=== PATIENT | female | born 1955 | race Two or more races ===

== ENCOUNTER 2016-11-24 19:18 | Emergency (ER) | payer SELFPAY ==
[~2016-11-24] VITALS: Ht 157.5 cm; Wt 100.0 kg
[2016-11-24] MEDS ORDERED: KETOROLAC 30MG/ML VIAL IV STA (21:49)
[2016-11-24] MEDS ORDERED: SODIUM CHLORIDE 0.9% 500 ML IV ONE (21:49)
[2016-11-24] MEDS ORDERED: ONDANSETRON HCL 4MG/2ML VIAL IV STA (21:49)
[2016-11-24] MEDS ORDERED: MORPHINE SULFATE 4 MG/ML CPJ (NOT FOR IM USE) IV STA (21:49)
[2016-11-25] MEDS ORDERED: MORPHINE SULFATE 4 MG/ML CPJ (NOT FOR IM USE) IV ONE (00:15)
[2016-11-25] MEDS ORDERED: ONDANSETRON HCL 4MG/2ML VIAL IV ONE (00:15)
[2016-11-25 01:30] VITALS: BP 146/85
== END 2016-11-25 01:30 | disposition home or self-care (01) ==
LOC: ER 19:18
DX: S52.591A Other fractures of lower end of right radius, initial encounter for closed fracture (principal); I10 Essential (primary) hypertension; J45.909 Unspecified asthma, uncomplicated; E78.00 Pure hypercholesterolemia, unspecified; W01.0XXA Fall on same level from slipping, tripping and stumbling without subsequent striking against object, initial encounter; Y93.89 Activity, other specified; Y92.89 Other specified places as the place of occurrence of the external cause; Y99.8 Other external cause status; Z98.890 Other specified postprocedural states; Z91.018 Allergy to other foods
CPT/HCPCS: 29125; 73110; 73130; 96361; 96374; 96375; 99285; J1885; J2270; J2405; J7030; J7040; Z7610; A4565

== ENCOUNTER 2016-12-26 06:31 | Inpatient (IN) | payer BC ==
[~2016-12-26] VITALS: Ht 158.8 cm; Wt 96.6 kg
[2016-12-26] MEDS: ALBUTEROL (0.083%) 2.5MG/3ML NEB HHN SCH (08:30)
[2016-12-26] MEDS ORDERED: BACITRACIN 50,000 UNITS/VIAL ONE (10:38)
[2016-12-26] MEDS ORDERED: BUPIVACAINE HCL/PF 0.25% (2.5MG/ML) 10ML ONE (10:38)
[2016-12-26] MEDS ORDERED: NORMAL SALINE 0.9% 10 ML SYR ONE (10:38)
[2016-12-26] MEDS ORDERED: SODIUM CHLORIDE 0.9% 1,000 ML IV SCH (10:40)
[2016-12-26] MEDS ORDERED: FENTANYL CITRATE/PF 50MCG/ML 2ML VIAL IV PRN (11:30)
[2016-12-26] MEDS ORDERED: HYDROMORPHONE HCL/PF 2MG/ML CPJ IV PRN (11:30)
[2016-12-26] MEDS ORDERED: ONDANSETRON HCL 4MG/2ML VIAL IV PRN ×2 (11:30→13:30)
[2016-12-26] MEDS ORDERED: ATOR20TA65 PO (12:34)
[2016-12-26] MEDS ORDERED: ALBU90AE IH (12:34)
[2016-12-26] MEDS ORDERED: COD1CAPS7 PO (12:34)
[2016-12-26] MEDS ORDERED: IBUP-1636 PO (12:34)
[2016-12-26] MEDS ORDERED: CALC600T12 PO (12:34)
[2016-12-26] MEDS ORDERED: MOME13HF IH (12:34)
[2016-12-26] MEDS ORDERED: MULT-1146 PO (12:34)
[2016-12-26] MEDS ORDERED: HYDR-4134 PO (12:34)
[2016-12-26] MEDS ORDERED: SKIN ADHESIVE 0.7 GM EA TOP ONE (12:38)
[2016-12-26] MEDS ORDERED: MORPHINE SULFATE/PF 1MG/ML 10ML AMP ONE (13:11)
[2016-12-26] MEDS ORDERED: ACETAMINOPHEN 325MG TABLET PO PRN (13:30)
[2016-12-26] MEDS ORDERED: HYDROCODONE/ACETAMINOPHEN 5/325MG TABLET PO PRN ×2 (13:30)
[2016-12-26] MEDS ORDERED: DIPHENHYDRAMINE INJ IV PRN (14:00)
[2016-12-26] MEDS ORDERED: ONDANSETRON INJ IV PRN (14:00)
[2016-12-26] MEDS ORDERED: HYDROMORPHONE PCA 10MG/50ML IV PRN (14:00)
[2016-12-26] MEDS ORDERED: NALOXONE INJ IV PRN (14:00)
[2016-12-26 17:00] VITALS: BP 134/55
[2016-12-26] MEDS ORDERED: FORMOTEROL IH SCH (17:00)
[2016-12-26] MEDS ORDERED: [UNRECOGNIZED DRUG - OTHER] IH SCH (17:00)
[2016-12-26] MEDS ORDERED: MOMETASONE IH SCH (17:00)
[2016-12-26] MEDS: CEFAZOLIN 2,000 MG in DEXT 5% WATER 100 ML IV SCH (18:18)
[2016-12-26 20:00] VITALS: BP 129/72
[2016-12-26] MEDS: HYDRALAZINE HCL 50MG TABLET PO SCH (21:49)
[2016-12-27] VITALS: BP 132/82
[2016-12-27] MEDS: ALBUTEROL (0.083%) 2.5MG/3ML NEB HHN SCH ×2 (01:27→15:46)
[2016-12-27] MEDS: BUDESONIDE 0.5MG/2ML NEB HHN SCH ×2 (01:28→08:30)
[2016-12-27] MEDS: CEFAZOLIN 2,000 MG in DEXT 5% WATER 100 ML IV SCH (02:07)
[2016-12-27 04:00] VITALS: BP 113/59
[2016-12-27 08:00] VITALS: BP 100/52
[2016-12-27] MEDS: HYDRALAZINE HCL 50MG TABLET PO SCH (09:00)
[2016-12-27 12:00] VITALS: BP 109/58
[2016-12-27 15:02] VITALS: BP 109/58
[2016-12-27 16:00] VITALS: BP 123/53
== END 2016-12-27 16:20 | disposition home or self-care (01) | DRG 512 ==
LOC: OR 06:31 → 6EST 06:32
PROVIDERS: ADMIT Orthopaedic Surgery; ATTEND Orthopaedic Surgery
PROC: 0PSH04Z Reposition Right Radius with Internal Fixation Device, Open Approach (ICD-10-PCS; principal; 2016-12-26 09:30)
DX: S52.501A Unspecified fracture of the lower end of right radius, initial encounter for closed fracture (principal); W18.30XA Fall on same level, unspecified, initial encounter; W19.XXXA Unspecified fall, initial encounter; Y93.89 Activity, other specified; Y92.89 Other specified places as the place of occurrence of the external cause; Y99.8 Other external cause status
CPT/HCPCS: 73090; 73110; 94640; 94664; 97166; 97530; 97535; A4216; J0690; J1170; J2274; J2405; J3010; J3490; J7030; J7042; J7060; J7611; J7626

== ENCOUNTER 2017-08-09 05:33 | Inpatient (IN) | payer BC ==
[~2017-08-09] VITALS: Ht 157.5 cm; Wt 107.5 kg
[2017-08-09 00:05] VITALS: BP 114/74
[~2017-08-09 05:33] MED LIST: ALBU90AE IH; ATOR20TA65 PO; CALC600T12 PO; COD1CAPS7 PO; HYDR-4134 PO; IBUP-1653 PO; MOME13HF IH; MULT-1146 PO
[2017-08-09] MEDS ORDERED: ACETAMINOPHEN 325MG TABLET PO STA (06:28)
[2017-08-09 07:13] LABS: HEMATOCRIT. 38.3 % (36.0-48.0); HEMOGLOBIN. 13.4 g/dL (12.0-16.0); MEAN CORPUSCULAR HEMOGLOBIN 30.2 pg (28.0-32.0); MEAN CORPUSCULAR VOLUME 86.6 fL (81.0-99.0); MEAN PLATELET VOLUME 7.5 fl (7.4-10.4); PLATELET 272 x1000/uL (130-400); RED BLOOD CELL COUNT 4.42 mill/uL (4.2-5.4); RED CELL DISTRIBUTION WIDTH 13.7 % (11.6-14.6)
[2017-08-09] MEDS ORDERED: LEVOFLOXACIN 500MG PREMIX 100 ML IV ONE (07:15)
[2017-08-09] MEDS ORDERED: IPRATROPIUM/ALBUTEROL 0.5-3(2.5)MG/3ML NEB HHN ONE (07:15)
[2017-08-09 07:16] LABS: CHLORIDE 96 mEq/L (98-107)
[2017-08-09 07:17] LABS: INR 1.2; PROTHROMBIN TIME 12.6 sec (9.4-11.6)
[2017-08-09 07:35] LABS: ATYPICAL LYMPHOCYTES 1
[2017-08-09 07:36] LABS: PLATELET ESTIMATE NORMAL
[2017-08-09 12:13] VITALS: BP 114/62
[2017-08-09 12:23] VITALS: BP 114/62
[2017-08-09] MEDS ORDERED: ENOXAPARIN 40MG/0.4ML SYR SUBCUT SCH (12:30)
[2017-08-09] MEDS ORDERED: CLONIDINE 0.1MG TABLET PO PRN (12:30)
[2017-08-09] MEDS ORDERED: ONDANSETRON HCL 4MG/2ML VIAL IV PRN (12:30)
[2017-08-09] MEDS ORDERED: HYDROCODONE/ACETAMINOPHEN 5/325MG TABLET PO PRN (12:30)
[2017-08-09] MEDS: IPRATROPIUM/ALBUTEROL 0.5-3(2.5)MG/3ML NEB INH SCH ×3 (12:42→21:58)
[2017-08-09] MEDS: METHYLPREDNISOLONE SOD SUCC 40 MG/ML VIAL IV SCH ×2 (12:49→21:01)
[2017-08-09] MEDS: ENOXAPARIN 40MG/0.4ML SYR SUBCUT SCH ×2 (12:50→21:02)
[2017-08-09] MEDS ORDERED: POTASSIUM CHLORIDE 20MEQ TABLET SR PO NR (14:30)
[2017-08-09] MEDS ORDERED: IOHEXOL-350 100 ML BOTTLE ONE (15:34)
[2017-08-09] MEDS ORDERED: DIPHENHYDRAMINE 50MG/ML VIAL IV NR (16:15)
[2017-08-09 16:30] VITALS: BP 138/66
[2017-08-09 17:39] VITALS: BP 137/65
[2017-08-09 17:42] LABS: CREATINE KINASE 77 IU/L (26-192)
[2017-08-09 18:01] LABS: HEPATITIS B SURFACE ANTIGEN NEGATIVE
[2017-08-09 18:29] LABS: HEPATITIS B CORE AB IGM NEGATIVE
[2017-08-09 18:42] LABS: HEPATITIS A AB IGM NEGATIVE (NEGATIVE)
[2017-08-09 19:00] VITALS: BP 118/71
[2017-08-09] MEDS ORDERED: SODIUM CHLORIDE 0.9% 1,000 ML IV SCH (21:00)
[2017-08-10] MEDS: IPRATROPIUM/ALBUTEROL 0.5-3(2.5)MG/3ML NEB INH SCH ×5 (00:38→15:49)
[2017-08-10 01:32] LABS: CREATINE KINASE 59 IU/L (26-192)
[2017-08-10 04:17] VITALS: BP 109/55
[2017-08-10 06:44] LABS: BASOPHILS % 0.1 % (0.0-2.0); HEMATOCRIT. 37.4 % (36.0-48.0); HEMOGLOBIN. 13.1 g/dL (12.0-16.0); LYMPHOCYTES % 7.7 % (20.0-50.0); MEAN CORPUSCULAR HEMOGLOBIN 30.3 pg (28.0-32.0); MEAN CORPUSCULAR VOLUME 86.3 fL (81.0-99.0); MEAN PLATELET VOLUME 7.5 fl (7.4-10.4); MONOCYTES % 5.2 % (2.0-8.0); PLATELET 334 x1000/uL (130-400); RED BLOOD CELL COUNT 4.33 mill/uL (4.2-5.4); RED CELL DISTRIBUTION WIDTH 13.7 % (11.6-14.6)
[2017-08-10 06:58] LABS: CLARITY URINE CLEAR (CLEAR); COLOR URINE DARK YELLOW (YELLOW); KETONES URINE 3+ (NEGATIVE); LEUKOCYTE ESTERASE URINE NEGATIVE (NEGATIVE); NITRITE URINE NEGATIVE (NEGATIVE); OCCULT BLOOD URINE NEGATIVE (NEGATIVE); PH URINE 5.5 (4.5-8.0); PROTEIN URINE TRACE (NEGATIVE); SPECIFIC GRAVITY URINE 1.049 (1.005-1.030)
[2017-08-10 07:22] LABS: CHLORIDE 100 mEq/L (98-107)
[2017-08-10 07:53] LABS: LDL CHOLESTEROL 104 mg/dL (5-100)
[2017-08-10 08:00] VITALS: BP 120/59
[2017-08-10 08:02] LABS: T4 FREE 1.51 ng/dL (0.76-1.46)
[2017-08-10 08:27] LABS: HDL CHOLESTEROL 44 mg/dL (40-59)
[2017-08-10] MEDS ORDERED: LEVOFLOXACIN 500MG PREMIX 100 ML IV SCH (09:00)
[2017-08-10] MEDS: METHYLPREDNISOLONE SOD SUCC 40 MG/ML VIAL IV SCH (09:35)
[2017-08-10] MEDS: ENOXAPARIN 40MG/0.4ML SYR SUBCUT SCH (09:36)
[2017-08-10] MEDS ORDERED: AZITHROMYCIN 500 MG in DEXT 5% WATER 250 ML IV SCH (15:00)
[2017-08-10 18:24] VITALS: BP 144/82
== END 2017-08-10 20:15 | disposition home or self-care (01) | DRG 193 ==
LOC: ER 05:33 → 6WST 10:44 → EDBEDREQ 10:48 → ENRESERV 11:02
PROVIDERS: ADMIT Internal Medicine; ATTEND Internal Medicine
DX: J18.9 Pneumonia, unspecified organism (principal); J96.21 Acute and chronic respiratory failure with hypoxia; J44.0 Chronic obstructive pulmonary disease with (acute) lower respiratory infection; J44.1 Chronic obstructive pulmonary disease with (acute) exacerbation; E66.01 Morbid (severe) obesity due to excess calories; J45.901 Unspecified asthma with (acute) exacerbation; Z68.41 Body mass index [BMI] 40.0-44.9, adult; E78.00 Pure hypercholesterolemia, unspecified; E86.0 Dehydration; I10 Essential (primary) hypertension; Z79.899 Other long term (current) drug therapy
CPT/HCPCS: 36415; 71045; 71275; 80053; 80061; 81003; 82550; 83605; 84145; 84439; 84443; 84484; 85025; 85610; 86705; 86709; 86803; 87040; 87070; 87077; 87340; 87804; 93005; 93306; 94618; 94640; 96365; 97162; 99285; J0456; J1200; J1650; J1956; J2920; J7030; J7060; J7620; Q9967